=== PATIENT | male | born 1945 | race Caucasian/White ===

== ENCOUNTER → 2023-12-19 13:17 | Outpatient (REF) | payer MEDICARE, OTHER, SELFPAY ==
[2023-12-19 14:48] LABS: % Basophils 0.7 % (0-2); % Eosinophils 8.5 % (0-6); % Immature Granulocytes 0.4 % (0-0.5); % Lymphocytes 18.6 % (20.5-51.1); % Monocytes 10.8 % (1.7-9.3); Absolute Basophils 0.1 10^3/uL (0-0.2); Absolute Eosinophils 0.7 10^3/uL (0-0.7); Absolute Lymphocytes 1.4 10^3/uL (1.2-3.4); Absolute Monocytes 0.8 10^3/uL (0.1-0.6); Absolute Neutrophils 4.7 10^3/uL (1.4-6.5); Hematocrit 42.6 % (39.0-52.0); Hemoglobin 14.3 g/dL (13.0-18.0); Mean Corp Hgb Conc. 33.6 g/dL (33.0-37.0); Mean Corpuscular Hgb 30.1 pg (27.0-31.0); Mean Corpuscular Volume 89.7 fL (80.0-94.0); Mean Platelet Volume 12.4 fL (7.4-10.4); Nucleated Red Blood Cells % 0 % (-); Platelet Count 166 10^3/uL (130-400); Red Blood Cell Count 4.75 10^6/uL (4.70-6.10); Red Cell Dist. Width 13.6 % (11.5-14.5); White Blood Cell Count 7.7 10^3/uL (4.8-10.8)
[2023-12-19 15:25] LABS: ALT (SGPT) 19 U/L (0-50); AST (SGOT) 25 U/L (17-59); Alkaline Phosphatase 91 U/L (38-126); Blood Urea Nitrogen 24 mg/dl (9-20); Calcium 10.6 mg/dl (8.4-10.2); Carbon Dioxide 28 mmol/L (22-30); Chloride 106 mmol/L (98-107); Glucose 89 mg/dl (70-99); HDL Cholesterol 81 mg/dl; LDL Cholesterol, Calculated 50 mg/dl; Potassium 4.6 mmol/L (3.5-5.1); Sodium 139 mmol/L (135-145); Total Bilirubin 1.2 mg/dl (0.2-1.3); Total Cholesterol 140 mg/dl (50-199); Total Protein 6.6 g/dl (6.3-8.2); Triglyceride 47 mg/dl (10-149); Very Low Density Lipoprotein 9 mg/dl (0-30); eGFR > 60.00
[2023-12-19 15:54] LABS: PSA, Total - Screen 2.51 ng/ml (0.0-4.0); TSH 0.99 uIU/ml (0.47-4.68)
== END ==
LOC: HWLAB 13:17
PROVIDERS: ATTENDING PHYSICIAN Family Medicine; REFERRING PHYSICIAN Internal Medicine Cardiovascular Disease
DX: E78.2 Mixed hyperlipidemia (principal); N40.1 Benign prostatic hyperplasia with lower urinary tract symptoms; I10 Essential (primary) hypertension; Z12.5 Encounter for screening for malignant neoplasm of prostate
CPT/HCPCS: 36415; 80053; 80061; 84443; 85025; G0103

== ENCOUNTER 2024-04-11 17:33 | Emergency (ER) | payer MEDICARE, OTHER, SELFPAY ==
[2024-04-11] VITALS (8 sets, daily range): BP systolic 107–134; BP diastolic 80–94; BMI 29.6
[2024-04-11 20:07] LABS: % Eosinophils 8.1 % (0-6); % Immature Granulocytes 0.3 % (0-0.5); % Lymphocytes 19.6 % (20.5-51.1); % Monocytes 15.2 % (1.7-9.3); % Neutrophils 55.8 % (42.2-75.2); Absolute Basophils 0.1 10^3/uL (0-0.2); Absolute Eosinophils 0.6 10^3/uL (0-0.7); Absolute Lymphocytes 1.4 10^3/uL (1.2-3.4); Absolute Monocytes 1.1 10^3/uL (0.1-0.6); Absolute Neutrophils 3.9 10^3/uL (1.4-6.5); Hematocrit 40.5 % (39.0-52.0); Hemoglobin 14.1 g/dL (13.0-18.0); Mean Corp Hgb Conc. 34.8 g/dL (33.0-37.0); Mean Corpuscular Hgb 30.4 pg (27.0-31.0); Mean Corpuscular Volume 87.3 fL (80.0-94.0); Mean Platelet Volume 11.8 fL (7.4-10.4); Nucleated Red Blood Cells % 0 % (-); Platelet Count 171 10^3/uL (130-400); Red Blood Cell Count 4.64 10^6/uL (4.70-6.10); Red Cell Dist. Width 13.5 % (11.5-14.5); White Blood Cell Count 7.1 10^3/uL (4.8-10.8)
--- NOTE | 2024-04-11 20:19 | ED.GENMED ---
History of Present Illness
General
Chief Complaint: Heart Rate Problem
Source: patient
Exam Limitations: none
Time Seen by Provider: 04/11/24 19:59
Nursing documentation reviewed up to this point in time: agreed with
History of Present Illness
History of Present Illness:
79 y/o M
h/o htn, hld, AAA repair
no AC
checked his HR like he usually does yesterday and it was 90s which is unusually high fo rhim, nomral is 50s-60s
pt is on metoprolol succ 25 mg daily
pt says he went to the gym yesterday and felt alittle fatigued afterward but didn't think anything of it. had no palptiations or chest pain or sob
then today checked hr again and it was elevated
he talked with a friend who thought maybe he had afib and told him to [facility] in
he has no history
currently completely asypmatomtic
says if he hadn't noticed his HR elevated he would never have known
no sob, leg swelling
Past History
Past History
ED Past Medical History: HTN, Hypercholesterolemia and Other (History of frequent headaches)
ED Past Surgical History: Appendectomy and Other (Past surgery on the jaw and the eye)
Review of Systems
Review of Systems
Allergies reviewed?: Yes
All Other Systems: Not applicable
Phy Exam
Physical Exam
Physical Exam:
GENERAL: Alert , in no apparent distress
EYE: pupils equal and reactive
NECK: Supple
ENT: o/p clr, mmm.
CARDIAC: irregularly irregular, no edema.
LUNGS: Clear breath sounds bilaterally, no acute respiratory distress, no wheezes/rales/rhonchi
ABDOMEN: Soft, without focal tenderness, no r/g, no cvat, normal bowel sounds
NEUROLOGICAL: Alert and oriented, no focal neuro deficits
SKIN: Warm and dry, skin intact.
MUSCULOSKELETAL: No edema, well perfused. neg kitty's sign
PSYCH: Normal and appropriate interaction.
Scores
[id number] Score for Afib Stroke Risk
Age in Years (65=0, 65-74=1, >/=75=2): > or = 75
Sex (Female=+1): Male
Congestive Heart Failure History (Yes=+1): No
Hypertension History (Yes=+1): Yes
Stroke/TIA/Thromboembolism History (Yes=+2): No
Vascular Disease History (Yes=+1): Yes
Diabetes Mellitus (Yes=+1): No
Score: 4
Anticoagulation Recommendations: Recommend anticoagulation (as validated in nonvalvular fib)
Course
Orders/Labs/Results
Orders:
Orders
04/11/24 17:39
EKG [Electrocardiogram (*1)] Urgent
Reason for Study: Atrial Fibrillation
04/11/24 17:40
EKG- Treatment ONCE
04/11/24 20:00
Complete Blood Count/With Diff Urgent
Comprehensive Metabolic Panel Urgent
NT-proBNP Urgent
TSH Reflex To Free T4 Urgent
Troponin I Urgent
04/11/24 20:27
CR Chest - 2 Views Urgent
Comment:
Reason For Exam: new afib
04/11/24 20:29
Metoprolol Xl [Toprol Xl] 12.5 mg PO NOW STA
04/11/24 21:45
Apixaban [Eliquis] 10 mg PO NOW STA
04/11/24 21:46
Apixaban [Eliquis] 5 mg PO NOW STA
04/11/24 21:51
Case Management Consult ONCE
Case Management Consult: Other
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
Abnormal Lab Results
04/11/24
20:00
RBC 4.64 L 10^6/uL
(4.70-6.10)
MPV 11.8 H fL
(7.4-10.4)
Absolute Monos (auto) 1.1 H 10^3/uL
(0.1-0.6)
Lymphocytes % 19.6 L %
(20.5-51.1)
Monocytes % 15.2 H %
(1.7-9.3)
Eosinophils % 8.1 H %
(0-6)
BUN 28 H mg/dl
(9-20)
Calcium 10.3 H mg/dl
(8.4-10.2)
Total Protein 6.0 L g/dl
(6.3-8.2)
04/11/24 20:00
04/11/24 20:00
Vital Signs
Initial and Last Documented VS:
Initial Vital Signs
Temp Pulse Resp BP Pulse Ox
99.0 F 100 18 134/92 98
04/11/24 17:35 04/11/24 17:35 04/11/24 17:35 04/11/24 17:35 04/11/24 17:35
Last Documented Vital Signs
Temp Pulse Resp BP Pulse Ox
97.7 F 88 18 117/90 95
04/11/24 20:05 04/11/24 22:04 04/11/24 22:04 04/11/24 22:04 04/11/24 22:04
MDM/Problems Addressed
Differential Diagnosis Includes:
afib, chf,
MDM/Problems Addressed:
79 y/o M on metoprolol succs 25 mg daily for HTN, h/o AAA repair, hld
takes his bp and hr regularly just to check
normal hr is 50s-60s
yesterday it was 90s
he felt a little fatigued after the gym but otherwise has no symptoms of palpitaitons/cp/sob/leg swelling
today HR 90s again so he suspected afib and is in afib with HR 90s-100s; looks well otherwise
appreciate bnp 3000, but CXR clear, no signs failure d/w ed attenidng who agreed as well as supervisor sample preparation dr. cristina
pt's chadsvasc is 4 will need ac
no contraindications
discussed risk/benefit
eliquis dose in ed
dr. cristina recommended 1.5 tabs of his metoprolol (37.5) daily;
given extra dose here 12.5 mg
hr down to 80s
they will get him in to be seen this week
*Critical Care Note
Total Time (30-74mins, 75-104mins- exclusive of procedures): Not Applicable
ED Attending Note
-
Portions of this chart may have been created with voice recognition software.� Occasional wrong word or��sound alike� substitutions may have occurred due to the inherent limitations of voice recognition software.
Discharge Plan
Departure
Patient Disposition: Home (Routine Discharge)
Date of Disposition: 04/11/24
Time of Disposition: 21:47
Patient with high blood pressure during this ER visit?: No
Condition: Fair
Covid-19: Not Applicable
Discharge Problem:
Atrial fibrillation, new onset
Instructions: Atrial Fibrillation (DC)
Prescriptions:
New
Eliquis 5 mg tablet
5 mg PO BID Qty: 60 0RF
No Action
aspirin 325 MG tablet
325 mg PO DAILY
ibuprofen [Advil] 200 MG tablet
200 mg PO PRN PRN (Reason: joint pain)
Multi Bdzk-Aokz-Pp 0.25 Mg
DAILY
Referrals:
Gil Reaves MD [Family Provider] -
Jun Rawls MD [Active] - Follow up in 2-3 days
Activity Restrictions/Additional Instructions:
YOU HAVE AN ABNORMAL HEART RHYTHM CALLED ATRIAL FIBRILLATION
YOU NEED TO CALL THE [facility] NURSE OFFICE ON SATURDAY TO SCHEDULE AN APPOINTMENT NET WEEK
TELL THEM YOU WERE IN THE ER AND I SPOKE WITH DR. CRISTINA
TAKE METOPROLOL 1.5 TABS (37.5 MG) ONCE A DAY
START THE ELIQUIS 5 MG TWICE A DAY. THIS IS A BLOOD THINNER. RETURN FOR ANY INJURIES TO YOUR HEAD OR ANY BLEEDING THAT ISN'T CONTROLLED.
ALSO RETURN FOR: CHEST PAIN, SHORTNESS OF BREATH, PASSING OUT, HIGH HEART RATE > 120, LIGHTHEADEDNESS/ETC
WE DID CONSULT CASE MANAGEMENT TO FOLLOW UP REGARDING THE ELIQUIS TO BE SURE THAT YOUR INSURANCE WILL PARTIALLY COVER IT.
THEY WILL CONTACT YOU TO ASSIST
Interventions
Interventions:
*Risk Screen - Suicide Last Done: 04/11/24 17:35
*General Assessment Last Done: 04/11/24 17:35
*Neglect/Abuse Screening Last Done: 04/11/24 17:35
*ED COVID-19 Vaccine History Last Done: 04/11/24 17:35
*Nursing Disposition Last Done: 04/11/24 22:24
ED- Cardiac Assessment Last Done: 04/11/24 20:07
ED- Pulmonary Assessment Last Done: 04/11/24 20:07
Discharge Date and Time
Discharge Date/Time: 04/11/24 22:25
Print Language: HUNGARIAN
[2024-04-11 20:20] LABS: ALT (SGPT) 22 U/L (0-50); AST (SGOT) 28 U/L (17-59); Albumin 3.7 g/dl (3.5-5.0); Alkaline Phosphatase 75 U/L (38-126); Blood Urea Nitrogen 28 mg/dl (9-20); Calcium 10.3 mg/dl (8.4-10.2); Carbon Dioxide 28 mmol/L (22-30); Chloride 105 mmol/L (98-107); Estimated Creatinine Clearance 52 ml/min; Glucose 85 mg/dl (70-99); Potassium 4.3 mmol/L (3.5-5.1); Sodium 141 mmol/L (135-145); Total Bilirubin 0.7 mg/dl (0.2-1.3); eGFR 56.58
[2024-04-11 20:49] LABS: TSH Reflex To Free T4 0.94 uIU/ml (0.47-4.68)
[2024-04-11] MEDS: TOPROL XL 12.5 MG PO (20:49)
[2024-04-11 21:21] LABS: NT-proBNP 3470 pg/ml; Troponin I < 0.012 ng/ml
[2024-04-11] MEDS: ELIQUIS 5 MG PO (22:11)
== END 2024-04-11 22:25 | disposition home or self-care (01) ==
LOC: EMR 17:33
PROVIDERS: Physician Assistant; EMERGENCY PHYSICIAN Emergency Medicine; FAMILY PHYSICIAN Family Medicine
DX: I48.91 Unspecified atrial fibrillation (principal); R53.83 Other fatigue; I10 Essential (primary) hypertension; E78.00 Pure hypercholesterolemia, unspecified; Z79.899 Other long term (current) drug therapy; Z88.1 Allergy status to other antibiotic agents; Z88.2 Allergy status to sulfonamides
CPT/HCPCS: 99283; 71046; 80053; 83880; 84443; 84484; 85025; 93005

== ENCOUNTER → 2024-04-23 07:19 | Outpatient (REF) | payer MEDICARE, OTHER, SELFPAY | LOC: HWRCS 07:19 | PROVIDERS: ATTENDING PHYSICIAN Internal Medicine Cardiovascular Disease; FAMILY PHYSICIAN Family Medicine | DX: I48.91 Unspecified atrial fibrillation (principal) | CPT/HCPCS: 93306 ==

== ENCOUNTER → 2024-05-11 09:02 | Day surgery (SDC) | payer MEDICARE, OTHER, SELFPAY ==
--- NOTE | 2024-05-11 10:07 | ITS.CL.CARDI ---
[employer] - Cardioversion
Cardioversion
Procedure Report:
Date of Procedure: May 11 2024
Procedure: Cardioversion
Indication: Symptomatic atrial fibrillation
Performing Physician: David Drew DO, FACC
Technique: The patient was brought to the holding area. Signed informed consent was obtained. A time out was called and performed. The patient was anesthetized by the anesthesia service. Anticoagulation status was reviewed and appropriate. R2 pads
were placed anteriorly and posteriorly. A 200 J synchronized biphasic shock restored normal sinus rhythm without significant bradycardia. There were no complications.
Conclusion: Uncomplicated cardioversion from atrial fibrillation to sinus rhythm.
Recommendation: Routine post cardioversion care. Continue mcc anticoagulation.
--- NOTE | 2024-05-11 10:35 | ITS.CL.CARDI ---
[facility] - Cardioversion
Cardioversion
Procedure Report:
Date of Procedure: May 11 2024
Procedure: Cardioversion
Indication: Symptomatic atrial fibrillation
Performing Physician: David Drew DO, FACC
Technique: The patient was brought to the holding area. Signed informed consent was obtained. A time out was called and performed. The patient was anesthetized by the anesthesia service. Anticoagulation status was reviewed and appropriate. R2 pads
were placed anteriorly and posteriorly. A 250 J synchronized biphasic shock restored normal sinus rhythm without significant bradycardia. There were no complications.
Conclusion: Uncomplicated cardioversion from atrial fibrillation to sinus rhythm.
Recommendation: Routine post cardioversion care. Continue skilled nursing anticoagulation.
== END ==
LOC: CATH 09:02
PROVIDERS: ATTENDING PHYSICIAN Nuclear Medicine Nuclear Cardiology; FAMILY PHYSICIAN Family Medicine; OTHER PHYSICIAN Internal Medicine Cardiovascular Disease
DX: I48.91 Unspecified atrial fibrillation (principal); I10 Essential (primary) hypertension; E78.00 Pure hypercholesterolemia, unspecified; I34.0 Nonrheumatic mitral (valve) insufficiency; Z79.01 Long term (current) use of anticoagulants; Z79.82 Long term (current) use of aspirin
CPT/HCPCS: 92960; 93005

== ENCOUNTER → 2024-11-30 09:55 | Outpatient (REF) | payer MEDICARE, OTHER, SELFPAY ==
[2024-11-30 12:49] LABS: INR 1.26; PT 16.1 Sec (11.4-14.6)
== END ==
LOC: HWLAB 09:55
PROVIDERS: ATTENDING PHYSICIAN Internal Medicine Cardiovascular Disease; FAMILY PHYSICIAN Family Medicine
DX: I48.91 Unspecified atrial fibrillation (principal); Z79.01 Long term (current) use of anticoagulants
CPT/HCPCS: 36415; 85610

== ENCOUNTER → 2024-12-07 06:43 | Outpatient (REF) | payer MEDICARE, OTHER, SELFPAY ==
[2024-12-07 09:35] LABS: INR 3.07; PT 31.6 Sec (11.4-14.6)
== END ==
LOC: HWLAB 06:43
PROVIDERS: ATTENDING PHYSICIAN Internal Medicine Cardiovascular Disease; FAMILY PHYSICIAN Family Medicine
DX: Z79.01 Long term (current) use of anticoagulants (principal); I48.91 Unspecified atrial fibrillation
CPT/HCPCS: 36415; 85610

== ENCOUNTER → 2024-12-14 07:50 | Outpatient (REF) | payer MEDICARE, OTHER, SELFPAY ==
[2024-12-14 10:25] LABS: INR 2.69; PT 28.6 Sec (11.4-14.6)
== END ==
LOC: HWLAB 07:50
PROVIDERS: ATTENDING PHYSICIAN Internal Medicine Cardiovascular Disease; FAMILY PHYSICIAN Family Medicine
DX: I48.91 Unspecified atrial fibrillation (principal); Z79.01 Long term (current) use of anticoagulants
CPT/HCPCS: 36415; 85610

== ENCOUNTER → 2024-12-28 06:16 | Outpatient (REF) | payer MEDICARE, OTHER, SELFPAY ==
[2024-12-28 09:54] LABS: INR 2.37
== END ==
LOC: HWLAB 06:16
PROVIDERS: ATTENDING PHYSICIAN Internal Medicine Cardiovascular Disease; FAMILY PHYSICIAN Family Medicine
DX: Z79.01 Long term (current) use of anticoagulants (principal); I48.91 Unspecified atrial fibrillation
CPT/HCPCS: 36415; 85610

== ENCOUNTER → 2025-01-25 06:07 | Outpatient (REF) | payer MEDICARE, OTHER, SELFPAY ==
[2025-01-25 09:34] LABS: INR 2.86; PT 29.9 Sec (11.4-14.6)
== END ==
LOC: HWLAB 06:07
PROVIDERS: ATTENDING PHYSICIAN Internal Medicine Cardiovascular Disease; FAMILY PHYSICIAN Family Medicine
DX: I48.91 Unspecified atrial fibrillation (principal); Z79.01 Long term (current) use of anticoagulants
CPT/HCPCS: 36415; 85610

== ENCOUNTER → 2025-02-22 06:04 | Outpatient (REF) | payer MEDICARE, OTHER, SELFPAY ==
[2025-02-22 10:15] LABS: INR 2.77; PT 29.2 Sec (11.4-14.6)
== END ==
LOC: HWLAB 06:04
PROVIDERS: ATTENDING PHYSICIAN Internal Medicine Cardiovascular Disease; FAMILY PHYSICIAN Family Medicine
DX: I48.91 Unspecified atrial fibrillation (principal); Z79.01 Long term (current) use of anticoagulants
CPT/HCPCS: 36415; 85610

== ENCOUNTER → 2025-03-22 10:33 | Outpatient (REF) | payer MEDICARE, OTHER, SELFPAY ==
[2025-03-22 13:27] LABS: INR 1.95; PT 22.4 Sec (11.4-14.6)
== END ==
LOC: HWLAB 10:33
PROVIDERS: ATTENDING PHYSICIAN Internal Medicine Cardiovascular Disease; FAMILY PHYSICIAN Family Medicine
DX: Z79.01 Long term (current) use of anticoagulants (principal); I48.91 Unspecified atrial fibrillation
CPT/HCPCS: 36415; 85610

== ENCOUNTER → 2025-03-29 07:03 | Outpatient (REF) | payer MEDICARE, OTHER, SELFPAY ==
[2025-03-29 09:49] LABS: INR 2.69; PT 28.6 Sec (11.4-14.6)
== END ==
LOC: HWLAB 07:03
PROVIDERS: ATTENDING PHYSICIAN Internal Medicine Cardiovascular Disease; FAMILY PHYSICIAN Family Medicine
DX: Z79.01 Long term (current) use of anticoagulants (principal); I48.91 Unspecified atrial fibrillation
CPT/HCPCS: 36415; 85610

== ENCOUNTER → 2025-04-26 07:13 | Outpatient (REF) | payer MEDICARE, OTHER, SELFPAY ==
[2025-04-26 10:47] LABS: INR 1.94; PT 22.3 Sec (11.4-14.6)
== END ==
LOC: HWLAB 07:13
PROVIDERS: ATTENDING PHYSICIAN Internal Medicine Cardiovascular Disease; FAMILY PHYSICIAN Family Medicine
DX: Z79.01 Long term (current) use of anticoagulants (principal); I48.91 Unspecified atrial fibrillation
CPT/HCPCS: 36415; 85610

== ENCOUNTER → 2025-05-10 06:59 | Outpatient (REF) | payer MEDICARE, OTHER, SELFPAY ==
[2025-05-10 09:47] LABS: INR 3.55; PT 35.3 Sec (11.4-14.6)
== END ==
LOC: HWLAB 06:59
PROVIDERS: ATTENDING PHYSICIAN Internal Medicine Cardiovascular Disease; FAMILY PHYSICIAN Family Medicine
DX: Z79.01 Long term (current) use of anticoagulants (principal); I48.91 Unspecified atrial fibrillation
CPT/HCPCS: 36415; 85610

== ENCOUNTER → 2025-05-10 15:41 | Outpatient (REF) | payer MEDICARE, OTHER, SELFPAY | LOC: RAD 15:41 | PROVIDERS: ATTENDING PHYSICIAN Physician Assistant Medical; FAMILY PHYSICIAN Family Medicine | DX: M79.89 Other specified soft tissue disorders (principal); M79.604 Pain in right leg | CPT/HCPCS: 93971 ==